=== PATIENT | female | born 2005 | race African-American/Black ===

== ENCOUNTER 2023-09-16 15:14 | Outpatient (AMB) | payer OTHER, SELFPAY ==
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
[2023-09-16 15:46] VITALS: BMI 26.6
== END 2023-09-16 16:29 | disposition home or self-care (01) ==
PROVIDERS: Visit Provider Orthopaedic Surgery
DX: S62.614A Displaced fracture of proximal phalanx of right ring finger, initial encounter for closed fracture (principal); S62.616A Displaced fracture of proximal phalanx of right little finger, initial encounter for closed fracture; R29.898 Other symptoms and signs involving the musculoskeletal system
CPT/HCPCS: 99203

== ENCOUNTER 2023-09-16 15:14 | Outpatient (REF) | payer OTHER, SELFPAY ==
--- NOTE | ~2023-09-16 | XR_ITS ---
EXAMINATION: XR HAND, RIGHT CLINICAL INFORMATION: Pain right hand, attention small finger, good lateral. COMPARISON: None available. TECHNIQUE: Lateral view of the right fifth digit and 3 views of the right hand. FINDINGS: There is an oblique fracture at the proximal shaft of the fifth digit proximal phalanx with some override of fracture fragments and possible mild callus formation. Cystic lucency at the ulnar base of the fifth proximal phalanx. Tiny subchondral cystic lucencies at the base of the fourth proximal phalanx. XR/XR hand RT min 3V IMPRESSION: Oblique fracture at the proximal aspect of the proximal phalanx of the fifth digit. This study was presented today 09/23/2023 for interpretation. PSA staff will provide results to referring provider at this time.
== END 2023-09-16 15:15 | disposition home or self-care (01) ==
LOC: HO.HOSX 15:14
PROVIDERS: Visit Provider Orthopaedic Surgery
DX: R29.898 Other symptoms and signs involving the musculoskeletal system (principal); S62.614A Displaced fracture of proximal phalanx of right ring finger, initial encounter for closed fracture; S62.616A Displaced fracture of proximal phalanx of right little finger, initial encounter for closed fracture
CPT/HCPCS: 73130; 99202

== ENCOUNTER 2023-10-15 11:37 | Outpatient (AMB) | payer OTHER, SELFPAY ==
--- NOTE | 2023-10-15 12:00 | A.OFFVIS_ITS ---
Intake Visit Reasons: O/V RT hand s/p CRPP 04/04/23 rom Intake Note: Olman 18 yr old female returns to the office for a follow up ROM check for her right hand s/p CRPP SF 04/04/23. Patient reports her ROM has improved a lot and she feels that she doesn't need O.T. Allergies No Known Allergies Allergy (Verified 09/16/23 15:43) HPI HPI O/V RT hand s/p CRPP 04/04/23 rom : Details: Olman is a 18 year old right hand dominant girl who returns to discuss her right small finger pain & stiffness. She has a hx of a ring & small finger CRPP, DOS: 04/04/23 at [facility]. When she was last seen she was doing well but we had her start working on range of motion exercises and recommended OT. She says she is doing well and happy with her improvements. She has been using her hand for normal daily activities and has improved both her function and motion. She has yet to start OT hand therapy and does not feel she needs to at this time. 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 She can fully and actively extend all of her digits and she can bring them closed to a fist. The fracture sites are completely nontender. She can squeeze my finger with her small finger. The fracture is completely nontender No malalignment Radiographs three views of the right hand from 09/16/2023 were again reviewed by me today. Again we see the right small finger proximal phalanx shaft fracture that appears to have healed in satisfactory fracture alignment Assessment & Plan Assessment & Plan (1) Right hand weakness: Comment: Small finger weak in flexion Code(s): R29.898 - Other symptoms and signs involving the musculoskeletal system Category: Medical (2) Fracture of proximal phalanx of right ring finger: Code(s): S62.614A - Displaced fracture of proximal phalanx of right ring finger, initial encounter for closed fracture Category: Medical (3) Fracture of proximal phalanx of right little finger: Code(s): S62.616A - Displaced fracture of proximal phalanx of right little finger, initial encounter for closed fracture Category: Medical Plan Assessment & Plan: 1. Right small finger weakness in flexion This appears to be her chief complaint 2. Right small finger proximal phalanx shaft fracture, S/P CRPP 3. Right ring finger proximal phalanx base fracture, S/P CRPP DOS: 04/04/23, at [facility] These went on to heal well. I educated her about this condition She is doing very well with at home exercises and has improved her motion, strength, and overall function of her small finger She wishes to discontinue with OT hand therapy and continue exercises at home. I think this will work well for her. She will return to normal daily activities at this time She can follow up prn Scribed for Brittany Hobson MD by Billy Nunn, medical claims representative, on 10/15/23 at 12:05 PM, EST. Coding Level of Care Code Est Pt Level 3 (76823) Diagnoses Right hand weakness R29.898 Fracture of proximal phalanx of right ring finger S62.614A Fracture of proximal phalanx of right little finger S62.616A
== END 2023-10-15 12:01 | disposition home or self-care (01) ==
PROVIDERS: Visit Provider Orthopaedic Surgery
DX: S62.614A Displaced fracture of proximal phalanx of right ring finger, initial encounter for closed fracture (principal); S62.616A Displaced fracture of proximal phalanx of right little finger, initial encounter for closed fracture; R29.898 Other symptoms and signs involving the musculoskeletal system
CPT/HCPCS: 99213

== ENCOUNTER → 2023-10-15 11:37 | Outpatient (BNVA) | payer OTHER, SELFPAY | PROVIDERS: Visit Provider Orthopaedic Surgery | DX: R29.898 Other symptoms and signs involving the musculoskeletal system (principal); S62.614A Displaced fracture of proximal phalanx of right ring finger, initial encounter for closed fracture; S62.616A Displaced fracture of proximal phalanx of right little finger, initial encounter for closed fracture; X58.XXXA Exposure to other specified factors, initial encounter; Y93.9 Activity, unspecified; Y92.9 Unspecified place or not applicable; Y99.9 Unspecified external cause status | CPT/HCPCS: 99212 ==